=== PATIENT | male | born 1990 | race Caucasian/White ===

== ENCOUNTER 2016-06-13 12:23 | Emergency (ER) | payer OTHER, SELFPAY ==
[2016-06-13] MEDS ORDERED: Adacel (T-DAP) 0.5 ML VIAL ONE (12:32)
[2016-06-13] MEDS ORDERED: Bacitracin Zinc 1 Packet ONE (13:41)
[2016-06-13] MEDS ORDERED: Amoxicillin/Potassium Clav 875 MG TAB ONE (14:14)
--- NOTE | 2016-06-13 20:19 | RAD ---
RIGHT INDEX FINGER 06/13/16 A comminuted fracture of the distal phalanx is present. There is minimal displacement of fragments. Some soft tissue air is suggested. The proximal portions of the finger appear normal. IMPRESSION: Comminuted fracture of the distal phalanx. POS: HOME
== END 2016-06-13 14:33 | disposition home or self-care (01) ==
LOC: BURERS 12:23
DX: S62.660A Nondisplaced fracture of distal phalanx of right index finger, initial encounter for closed fracture (principal); S61.210A Laceration without foreign body of right index finger without damage to nail, initial encounter; F17.210 Nicotine dependence, cigarettes, uncomplicated; W22.8XXA Striking against or struck by other objects, initial encounter
CPT/HCPCS: 12001; 90471; 90715; J2001; Q4049

== ENCOUNTER 2016-11-15 16:50 | Emergency (ER) | payer OTHER ==
[2016-11-15] MEDS ORDERED: Cephalexin 250 MG CAP ONE (17:35)
--- NOTE | 2016-11-15 21:29 | RAD ---
CHEST TWO VIEWS 11/15/16 No opaque foreign bodies were appreciated. The heart is normal in size and the lungs are clear. No i nfiltrate or effusion was seen. The trachea is midline. The lateral view shows a mild anterior compr ession of one of the lower thoracic vertebra that appears to be due to old trauma. It is approximate ly T11. Nothing acute was suggested in the region. IMPRESSION: 1. No opaque foreign body seen. 2. No acute findings. 3. Old lower thoracic vertebral compression. Anterior height reduced by about 10-20%. POS: HOME
== END 2016-11-15 17:52 | disposition home or self-care (01) ==
LOC: BURERS 16:50
DX: S20.359A Superficial foreign body of unspecified front wall of thorax, initial encounter (principal); J45.909 Unspecified asthma, uncomplicated; F17.210 Nicotine dependence, cigarettes, uncomplicated; W45.8XXA Other foreign body or object entering through skin, initial encounter
CPT/HCPCS: 71020